=== PATIENT | male | born 1970 | race Caucasian/White ===

== ENCOUNTER → 2017-12-03 | Outpatient (CLI) | payer OTHER ==
--- NOTE | 2017-12-05 15:00 | MRI ---
EXAM DESCRIPTION: Lumbar Spine w/o Contrast MAGNETIC RESONANCE IMAGING. CLINICAL HISTORY: LUMBAR PAIN COMPARISON: None. TECHNIQUE: Multiplanar, multiple standard sequences, non contrast MRI, lumbar spine. FINDINGS: L5-S1: Disc desiccation and minimal disc space loss. 3 mm posterior midline bulging. Disc Abutting the descending right S1 nerve. Subarticular recesses unremarkable. Minimal arthrosis bilaterally and bilateral ligament hypertrophy. Mild to moderate canal narrowing. Mild narrowing of the left foramen and moderate narrowing of the right foramen. L4-5: Minimal disc desiccation. No significant bulging. Posterior ligaments minimal hypertrophy. Facets negative. Mild canal narrowing. Right foramen patent, minimal left foraminal narrowing. L3-4: Minimal disc desiccation with disc space preserved. Tiny disc bulge posteriorly to the left midline. Minimal left foraminal and canal narrowing. Right foramen patent. Posterior elements are unremarkable. L2-3: Diffuse Modic type II endplate reactive changes. Minimal disc space loss anterior bulging with endplate ridging. Posterior disc bulge in the midline 3 mm. Minimal bilateral facet arthrosis and ligament hypertrophy. Bilateral moderate foraminal narrowing. L1-2: Minimal disc desiccation and disc space preserved and no bulging. Canal and foramina are patent. Posterior elements unremarkable. T12-L1: Conus terminates at this level. Otherwise unremarkable. Paravertebral soft tissues unremarkable. Normal marrow signal in the remaining vertebral bodies and the posterior elements. Vertebral bodies are not compressed at any level. IMPRESSION: 1. Moderate spondylosis at L2-3. Posterior disc bulge. Bilateral moderate foraminal narrowing. 2. Posterior midline bulge L5-S1 disc. The disc is abutting the right S1 nerve above the subarticular recess. Moderate narrowing of the right foramen. Electronically signed by: Campbell Adair MD 12/05/2017 2:59 PM [facility] Workstation: [id number]
== END ==
LOC: MRI 08:41
DX: M51.26 Other intervertebral disc displacement, lumbar region (principal); M47.896 Other spondylosis, lumbar region